=== PATIENT | female | born 1960 | race Hispanic/Latino ===

== ENCOUNTER → 2017-09-04 | Outpatient (CLI) | payer OTHER ==
[~2017-09-04] MED LIST: DETROL LA4 MG PO; LEVAQUIN500 MG PO; TYLENOL WITH C1 EACH PO
--- NOTE | 2017-09-04 19:43 | Diagnostic Imaging Report ---
PROCEDURE:X-RAY ABDOMEN - KUB COMPARISON:[facility], CT, CT ABDOMEN W/CONTRAST, 02/10/2010, 20:16. [facility], DX, ABDOMEN-1VIEW (KUB), 03/02/2016, 15:14. INDICATIONS:CALCULUS OF KIDNEY FINDINGS: Nonobstructive bowel gas pattern with moderate to large amount of retained stool in the colon, which obscures the renal shadows. Ill-defined 3 mm somewhat linear radiopaque density projecting over the mid aspect of the left renal shadow. No other radiopaque densities project over the renal shadows, expected course of ureters or bladder. Degenerative disc changes in the lumbosacral spine, with mild lumbar leftward curvature. No lytic or blastic lesions. CONCLUSION: Ill-defined, 3 mm somewhat linear radiopaque density projecting over the mid aspect of the left renal shadow may represent a nonobstructing calculus. No other radiopaque densities project over the genitourinary system. Daniel Berg M.D. Dictated by: Daniel Berg M.D. on 09/04/2017 at 19:44 Electronically approved by: Daniel Berg M.D. on 09/04/2017 at 19:44
== END ==
LOC: RAD 16:17
PROVIDERS: ATTEND Urology
DX: N20.0 Calculus of kidney (principal)
CPT/HCPCS: 74018

== ENCOUNTER → 2017-09-18 | Outpatient (CLI) | payer OTHER ==
[~2017-09-18] MED LIST changes: +IOPAMIDOL 370 MG/ML 200 ML INFUS..BTL INJ ONE; +SODIUM CHLORIDE 0.9% 50ML 50 ML ONE
--- NOTE | 2017-09-18 08:55 | Diagnostic Imaging Report ---
PROCEDURE: CT ABDOMEN AND PELVIS WITHOUT CONTRAST COMPARISON:[facility], CT, CT ABDOMEN/PELVIS WO, 04/08/2015, 9:10. INDICATIONS:Calculus of kidney TECHNIQUE: Stone protocol Volumetric CT abdomen and pelvis. No intravenous or enteric contrast. Multiplanar reformatted images. DLP: 188.99 FINDINGS: Left lower lobe calcified granuloma. Lung bases otherwise clear. Normal heart size. Liver: Normal Gallbladder: Normal Pancreas: Normal Spleen: Normal Adrenal glands: Normal Urinary bladder: Normal Uterus and adnexa: Normal Kidneys: Right: Normal. No stones. Normal ureter. Left: Normal. No stones. Normal ureter. Bowel: Normal caliber. Peritoneum: Normal Vasculature: Normal caliber Lymph nodes: Normal Skeleton: Intact. Soft tissues: Tiny fat containing umbilical hernia. CONCLUSION: No nephrolithiasis or other abnormality. Dictated by: Misael Gordillo M.D. on 09/18/2017 at 8:56 Electronically approved by: Misael Gordillo M.D. on 09/18/2017 at 8:56
== END | disposition home or self-care (01) ==
LOC: CT 08:05
PROVIDERS: ATTEND Urology
DX: N20.0 Calculus of kidney (principal)
CPT/HCPCS: 74176; Q9967

== ENCOUNTER → 2018-07-03 | Outpatient (CLI) | payer OTHER ==
[~2018-07-03] MED LIST changes: -IOPAMIDOL 370 MG/ML 200 ML INFUS..BTL INJ ONE; -SODIUM CHLORIDE 0.9% 50ML 50 ML ONE
--- NOTE | 2018-07-03 16:51 | Diagnostic Imaging Report ---
EXAM: ABDOMEN-1VIEW (KUB) DATE: 07/03/2018 4:13 PM INDICATION: Left flank pain, dysuria, history of stones COMPARISON: None FINDINGS: Moderate stool largely secures kidneys, particularly on the right. No small bowel obstructive changes. Mild left apex curvature of the spine. There are a few tiny calcifications in the pelvis, statistically vascular. IMPRESSION: Moderate stool. Given history, CT renal stone protocol could be obtained if indicated. Signed by: Dr. Kory Peña MD on 07/03/2018 4:47 PM
== END ==
LOC: RAD 16:07
PROVIDERS: ATTEND Urology
DX: N20.0 Calculus of kidney (principal)
CPT/HCPCS: 74018

== ENCOUNTER → 2018-12-27 | Outpatient (CLI) | payer OTHER ==
--- NOTE | 2018-12-27 08:44 | Diagnostic Imaging Report ---
Abdomen, 1 view. History: Kidney stones. Comparison: 07/03/2018. Findings: Air is scattered throughout nondilated small and large bowel. There are no masses. Small calcifications in the pelvis are unchanged. The osseous structures are intact. IMPRESSION: Non-specific bowel gas pattern. No significant change. Signed by: Robin Eisenberg on 12/27/2018 8:41 AM
== END ==
LOC: RAD 07:32
PROVIDERS: ATTEND Urology
DX: Z87.442 Personal history of urinary calculi (principal)
CPT/HCPCS: 74018

== ENCOUNTER → 2019-04-21 | Outpatient (CLI) | payer OTHER ==
--- NOTE | 2019-04-21 17:41 | Diagnostic Imaging Report ---
Abdomen, 1 view. History: Renal stone. Findings: Air is scattered throughout nondilated small and large bowel. Small calcifications are again seen within the pelvis. The osseous structures are intact. IMPRESSION: Non-specific bowel gas pattern. Signed by: Robin Eisenberg on 04/21/2019 5:38 PM
== END ==
LOC: RAD 16:17
PROVIDERS: ATTEND Urology
DX: N20.0 Calculus of kidney (principal)
CPT/HCPCS: 74018

== ENCOUNTER → 2019-10-24 | Outpatient (CLI) | payer OTHER ==
--- NOTE | 2019-10-24 12:34 | Diagnostic Imaging Report ---
Exam: KUB - 2 views Indication: Renal calculus Comparison: KUB of 04/21/2019 Findings: No radiographically apparent renal calculi. Nonobstructive bowel gas pattern. No free air. No acute osseous injury. Subcentimeter phleboliths in the right pelvis. Impression: No radiographically apparent urinary calculi. Signed by: Iman Mccall MD on 10/24/2019 12:31 PM
== END ==
LOC: RAD 11:05
PROVIDERS: ATTEND Urology
DX: N20.0 Calculus of kidney (principal)
CPT/HCPCS: 74018

== ENCOUNTER → 2020-05-20 | Outpatient (CLI) | payer OTHER | LOC: RAD 16:26 | PROVIDERS: ATTEND Urology | DX: N20.0 Calculus of kidney (principal) | CPT/HCPCS: 74018 ==

== ENCOUNTER → 2020-11-24 | Outpatient (CLI) | payer BC | LOC: RAD 08:49 | PROVIDERS: ATTEND Urology | DX: N20.0 Calculus of kidney (principal) | CPT/HCPCS: 74018 ==

== ENCOUNTER → 2021-08-22 | Outpatient (CLI) | payer BC | LOC: RAD 08:18 | PROVIDERS: ATTEND Urology | DX: N20.0 Calculus of kidney (principal) | CPT/HCPCS: 74018 ==

== ENCOUNTER → 2022-05-03 | Outpatient (CLI) | payer BC | LOC: RAD 09:19 | PROVIDERS: ATTEND Urology | DX: N20.0 Calculus of kidney (principal) | CPT/HCPCS: 74018 ==